=== PATIENT | male | born 1975 | race Two or more races ===

== ENCOUNTER → 2019-11-03 | Day surgery (SDC) | payer OTHER ==
--- NOTE | 2019-10-29 11:53 | Diagnostic Imaging Report ---
EXAMINATION: CHEST 2 VIEWS INDICATION: ^[id number] ^1130 ^PRE-OP COMPARISON: None FINDINGS: PA and lateral views TUBES and LINES: None. LUNGS: Lungs are well inflated. Lungs are clear. There is no evidence of pneumonia or pulmonary edema. PLEURA: No pleural effusion or pneumothorax. HEART AND MEDIASTINUM: The cardiomediastinal silhouette is unremarkable. BONES AND SOFT TISSUES: No acute osseous lesion. Soft tissues are unremarkable. UPPER ABDOMEN: No free air under the diaphragm. IMPRESSION: No acute thoracic radiographic abnormality. Signed by: Enio Medley MD on 10/29/2019 11:50 AM
[~2019-11-03] MED LIST: BACITRACIN 50,000 UNIT VIAL ONE; BUPIVACAINE HCL 0.5% INJ 30 ML VIAL INJ ONE; CEFAZOLIN SOD 1 GM/NS 50ML 50 ML IV ONE; DEXAMETHASONE SOD PHOS INJ 4 MG/ML VIAL ONE; FENTANYL CITRATE/PF 100MCG/2 ML INJ ONE; HYDROMORPHONE 1MG/1ML INJ ONE; KETOROLAC TROMETHAMINE 30 MG/ML VIAL ONE; LIDOCAINE HCL 2% LOCAL INJ 5 ML SDV VIAL INJ ONE; MORPHINE SULFATE 2 MG/ML SYR 1ML ONE; MORPHINE SULFATE INJ 10 MG/ML ONE; MULTI-VITAMIN1 EACH PO; ONDANSETRON HCL INJ 2MG/ML 2ML 2 MG/ML VIAL ONE; PROPOFOL IV EMULSION 10 MG/ML 20 ML VIAL ONE; SEVOFLURANE INHAL SOLN 250 ML PEN BTL ONE
[2019-11-03 10:32] VITALS: BP 146/92
--- NOTE | 2019-11-03 12:38 | Operative Report ---
DATE OF PROCEDURE: 11/03/2019 SURGEON: Neha Stewart DPM PREOPERATIVE DIAGNOSIS: Left foot Achilles tendon rupture. POSTOPERATIVE DIAGNOSIS: Left foot Achilles tendon rupture. PLANNED PROCEDURE: Left Achilles tendon repair. MANAGER TRANSITION: Nehemias Benitez DPM ([place]). ANESTHESIA: General with a postoperative block consisting of 15 mL of 0.5% Marcaine plain. HEMOSTASIS: Pneumatic thigh tourniquet set at 350 mmHg for a total time of approximately 40 minutes. MATERIALS: Size 0 Ethibond, 3-0 Vicryl, 4-0 Prolene. PATHOLOGY: None. ESTIMATED BLOOD LOSS: Less than 10 mL. PROCEDURE NOTE: The patient was seen in the preoperative waiting room. The correct procedure and site were identified. The patient was brought to the operating room, where general anesthesia was initiated. A well-padded pneumatic tourniquet was placed about the patient's left thigh. The patient was then flipped into the prone position. The left foot, ankle, and leg were then scrubbed, prepped, and draped in the usual aseptic manner. The left foot, ankle, and leg was exsanguinated with an Esmarch bandage and the pneumatic thigh tourniquet was inflated to 350 mmHg for a total time of approximately 40 minutes. Attention was directed to the posterior aspect of the patient's left ankle, where a visual and palpable deficit was noted approximately 5 to 6 cm proximal to the Achilles tendon insertion site. A positive Dale test was noted. Utilizing a #15 blade, an 8 cm linear incision was made directly over the posterior aspect of the Achilles tendon and area of the Achilles tendon rupture. Incision was carried through subcutaneous tissue them from deep or underlying structures. All vital and neurovascular structures were identified, retracted medial and lateral, and all bleeders were cauterized or ligated as deemed necessary. Next, it should be noted there was a moderate amount of serous fluid as well as hematoma formation. Upon entrance of the peritenon, there were noted to be a complete rupture of the left Achilles tendon with a hematoma frayed edges to the proximal and distal aspect of the Achilles tendon as well as approximate 1.5 cm retraction. Utilizing blunt dissection with tenotomies, the Achilles tendon was freed of all attachments. The plantaris tendon was explored and appeared to be fully functional and intact. The frayed edges of the proximal distal ends of the Achilles tendon as well as a hematoma was debrided of all necrotic and devitalized tissue. Next, utilizing a Krackow suture technique, the proximal and distal ends of the Achilles tendon were sutured and holding the foot in a slightly dorsiflexed position in anatomic alignment. The Achilles tendon was sutured. This was followed by a modified [place]-type suture. Next, the Dale test was performed, that was noted to be negative at this time. The wound was then copiously irrigated with sterile saline. Capsule and deep tissue were reapproximated with 3-0 Vicryl, and the skin was closed using simple interrupted sutures with 4-0 Prolene. The incision site was then dressed with Adaptic, 4x4s, Kerlix, Webril, posterior splint, 4-inch Jak wrap, and a 6-inch Jak wrap. The patient tolerated the procedure and anesthesia well. The patient was transferred to the postoperative recovery room with vital signs stable and vascular status intact. The patient was monitored there for a short period time before being sent home with the following written and oral instructions: 1. Keep the dressing clean, dry, and intact. 2. The patient is to remain nonweightbearing to the left lower extremity to avoid any ambulation until being seen in the office. 3. The patient was given office number, and instructed to contact us if any problems arise. MARCUS Albrecht/ANIL /[id number]
== END | disposition home or self-care (01) ==
LOC: OR 05:44
PROVIDERS: ATTEND Podiatrist Foot & Ankle Surgery
DX: S86.012A Strain of left Achilles tendon, initial encounter (principal); X58.XXXA Exposure to other specified factors, initial encounter; Z01.810 Encounter for preprocedural cardiovascular examination; Z01.812 Encounter for preprocedural laboratory examination; Z01.818 Encounter for other preprocedural examination; Z11.59 Encounter for screening for other viral diseases
CPT/HCPCS: 27650; 71046; 93005; J0690; J1100; J1170; J1885; J2001; J2270 ×2; J2405; J2704; J3010; U0002